=== PATIENT | female | born 1930 | race Caucasian/White ===

== ENCOUNTER → 2016-11-04 | Outpatient (REF) | payer MEDICARE ==
[~2016-11-04] MED LIST: ASPI81CH21 PO; BENI40TA5 PO; CALC600T7 PO; CARV12.5 PO; FISH1000 PO; GABA300C2 PO; HYDRPOW75 PO; LEVO50TA PO; OXYB5TAB80 PO; ZOLP-189 PO
[2016-11-04 18:25] LABS: MEAN CORPUSCULAR HEMOGLOBIN 30.8 pg (27.0-33.0); MEAN CORPUSCULAR HGB CONC 33.3 g/dl (32.0-36.5); MEAN CORPUSCULAR VOLUME 92.7 fl (80.0-96.0); RED CELL DISTRIBUTION WIDTH 13.4 % (11.5-14.5); WHITE BLOOD COUNT 5.3 K/mm3 (4.0-10.0)
[2016-11-04 18:42] LABS: CALCIUM LEVEL 9.4 MG/DL (8.8-10.2); CREATININE FOR GFR 1.2 MG/DL (0.55-1.02); GLOMERULAR FILTRATION RATE 45.6 (>32); POTASSIUM SERUM 3.8 MEQ/L (3.5-5.1)
== END ==
LOC: M LABSMT 11:03 → M LABDRAWC 11:13
PROVIDERS: ATTEND Urology
DX: Z85.51 Personal history of malignant neoplasm of bladder (principal)

== ENCOUNTER → 2017-01-04 | Outpatient (REF) | payer MEDICARE | LOC: M SMT 13:36 | PROVIDERS: ATTEND Urology | DX: Z85.51 Personal history of malignant neoplasm of bladder (principal) ==

== ENCOUNTER → 2017-03-25 | Outpatient (REF) | payer MEDICARE ==
[~2017-03-25] MED LIST changes: +CARV6.25 PO; +ELIQ2.5T PO; +INDA125TA PO; +LEVO50TA45 PO; +VALS1TAB47 PO
[2017-03-25 17:58] LABS: ALBUMIN 3.7 GM/DL (3.2-5.2); ALBUMIN/GLOBULIN RATIO 0.95 (1.00-1.93); BILIRUBIN,TOTAL 0.6 MG/DL (0.2-1.0); CALCIUM LEVEL 9.6 MG/DL (8.8-10.2); CREATININE FOR GFR 1.08 MG/DL (0.55-1.02); FREE T4 1.64 NG/DL (0.76-1.46); GLOMERULAR FILTRATION RATE 51.3 (>32); POTASSIUM SERUM 3.7 MEQ/L (3.5-5.1); TOTAL PROTEIN 7.6 GM/DL (6.4-8.2)
[2017-03-25 18:34] LABS: BASO % 0.5 % (0.0-1.0); EOS # 0.1 K/mm3 (0.0-0.50); EOS % 1.7 % (0.0-3.0); LARGE UNSTAINED CELL # 0.2 K/mm3 (0.0-0.4); LARGE UNSTAINED CELL % 2.4 % (0.0-4.0); LYMPH # 1.8 K/mm3 (1.5-4.5); LYMPH % 23.5 % (24.0-44.0); MEAN CORPUSCULAR HEMOGLOBIN 31.8 pg (27.0-33.0); MEAN CORPUSCULAR HGB CONC 34.5 g/dl (32.0-36.5); MEAN CORPUSCULAR VOLUME 92.1 fl (80.0-96.0); MONO # 0.6 K/mm3 (0.0-0.8); NEUTROPHILS # 4.4 K/mm3 (1.8-7.7); NEUTROPHILS % 63.8 % (36.0-66.0); PLATELET COUNT, AUTOMATED 326 k/mm3 (150-450); RED CELL DISTRIBUTION WIDTH 13.3 % (11.5-14.5); WHITE BLOOD COUNT 6.8 K/mm3 (4.0-10.0)
== END ==
LOC: M SFHCCLAY 11:33
PROVIDERS: ATTEND Family Medicine
DX: E03.9 Hypothyroidism, unspecified (principal); I10 Essential (primary) hypertension
CPT/HCPCS: 80053; 84439; 84443; 85025; 93005; G0463

== ENCOUNTER 2017-05-13 13:57 | Day surgery (SDC) | payer MEDICARE ==
[~2017-05-13] VITALS: Ht 154.9 cm; Wt 52.5 kg
[2017-05-13] MEDS ORDERED: LR 1,000 ML IV SCH ×2 (14:15→19:45)
[2017-05-13] MEDS ORDERED: VANCOMYCIN HCL 750 MG, VIAL MATE ADAPTER 1 EACH in D5W 250 ML IV ONE (14:15)
[2017-05-13] MEDS ORDERED: NS 250 ML IV SCH (14:15)
[2017-05-13] MEDS ORDERED: LIDOCAINE 1% SDV INJ 30 ML VIAL As Ordered ONE (15:11)
[2017-05-13] MEDS ORDERED: MUPIROCIN 2% OINT 22 GM TUBE As Ordered ONE (15:11)
[2017-05-13] MEDS ORDERED: ISOVUE-300 61% 50ML VIAL (Q9967) As Ordered ONE (15:12)
[2017-05-13] MEDS ORDERED: VANCOMYCIN 1000 MG/20 ML VIAL (J3370) As Ordered ONE (15:12)
[2017-05-13] MEDS ORDERED: MIDAZOLAM INJ 2 MG/2 ML VIAL (J2250) As Ordered ONE (16:38)
[2017-05-13] MEDS ORDERED: fentaNYL 100 MCG/2 ML INJECTION (J3010) As Ordered ONE (16:39)
[2017-05-13] MEDS: LABETALOL HCL 100 MG/20 ML VIAL IV SCH ×5 (19:35→19:55)
[2017-05-13] MEDS ORDERED: ONDANSETRON 4MG/2ML VIAL (J2405) IV PRN (19:45)
[2017-05-13] MEDS ORDERED: fentaNYL 100 MCG/2 ML INJECTION (J3010) IV PRN (19:45)
[2017-05-13] MEDS ORDERED: hydrALAZINE INJ 20 MG/ML VIAL As Ordered ONE (19:57)
[2017-05-13] MEDS: hydrALAZINE INJ 20 MG/ML VIAL IV SCH ×4 (20:00→20:25)
[2017-05-13] MEDS: CARVedilol 6.25 MG TAB PO SCH (20:00)
[2017-05-13] MEDS: VALSARTAN 80 MG TAB (DIOVAN) PO SCH (20:00)
--- NOTE | 2017-05-13 20:12 | REP ---
FLUOROSCOPIC GUIDANCE FOR PACEMAKER INSERTION: 05/13/2017. Clinical history: Sick sinus syndrome. Findings: A single image from C-arm fluoroscopy provided to Dr. Ledesma of the cardiology division shows pacer leads over the right atrium and right ventricular region. Fluoroscopy time 7 minutes 7 seconds. Signed by Beny Brunson MD 05/14/2017 11:12 A
--- NOTE | 2017-05-13 20:14 | REP ---
AP PORTABLE CHEST: 05/13/2017. Clinical history: Status post dual chamber pacer insertion. Sick sinus syndrome. Findings. Immediate postprocedure study with skin sai over a battery pacer unit in the left upper chest. The two leads are projecting over the right atrium and right ventricle. Lungs are somewhat hypoinflated. There appears to be some cardiomegaly with left atrial and ventricular enlargement. There is vascular congestion in the perihilar regions with crowded markings and some patchy atelectasis or alveolar edema. No gross effusion. No pneumothorax. Signed by Beny Brunson MD 05/14/2017 11:13 A
[2017-05-13 20:45] VITALS: BP 152/65
[2017-05-13 21:21] VITALS: BP 152/65
[2017-05-13] MEDS: INDAPAMIDE 1.25MG TABLET PO SCH (21:30)
[2017-05-13] MEDS ORDERED: SLF 3 ML SYR IV PRN (21:30)
[2017-05-13 22:00] VITALS: BP 139/63
[2017-05-13] MEDS: SLF 3 ML SYR IV SCH (22:00)
[2017-05-13 22:35] VITALS: BP 166/65
[2017-05-13] MEDS ORDERED: LABETALOL HCL 100 MG/20 ML VIAL As Ordered ONE (23:01)
[2017-05-13] MEDS: ACETAMINOPHEN TAB 650MG DOSE (2X325MG) PO PRN (23:08)
[2017-05-13 23:30] VITALS: BP 160/66
--- NOTE | 2017-05-13 23:49 | RO ---
DATE OF PROCEDURE: 05/13/2017 PREOPERATIVE DIAGNOSIS: Sick sinus syndrome. POSTOPERATIVE DIAGNOSIS: Sick sinus syndrome. PROCEDURE PERFORMED: Implantation of Medtronic dual-chamber pacemaker. SURGEON: Benito Ledesma MD AREA DEVELOPMENT MANAGER: None. ANESTHESIA: Lidocaine 1% local/monitored anesthetic care. FINDINGS: Sick sinus syndrome. No specimens. ESTIMATED BLOOD LOSS: Less than 10 mL. No blood products replaced. No drains. No complications. PROCEDURE DESCRIPTION: The patient was prepped and draped over the left pectoral region. 3M Ioban film was used. Lidocaine 1% was used for local anesthetic. Venograms were performed using a mixture of three parts contrast to one part saline and injected in three aliquots of 15 mL total volume each during localization of the left subclavian vein, extrathoracic portion, under fluoroscopic guidance in real time with the micropuncture needles. The first micropuncture guidewire was guidewire exchanged for the guidewire that came with the #7-Gambian sheath. Next, incision was made through the skin approximately 2-1/2 inches in length and approximately parallel to the left clavicle and 1 cm below the skin entry site using a PEAK PlasmaBlade. The PEAK PlasmaBlade was used to get through the fatty layer and the fibrous Cheryl's fascia. The pacemaker pocket was then formed in a caudal direction using blunt dissection using two fingers to separate the Cheryl's fascia from the prepectoral fascia. The guidewire was then pulled through the skin into the incision site. Next, a separate micropuncture entry at the level of the pectoral muscle was made more lateral to the first guidewire and entering into the extrathoracic portion of the subclavian vein using the first guidewire as well as the contrast mixture. It was guidewire exchanged for the other guidewire that came with the other #7-Gambian sheath. Next, a #7-Gambian sheath was placed over the more lateral of the guidewires and was used for vein access for the right ventricle lead. The right ventricle lead was placed into the right ventricle apex position where it was secured with a total of eight turns. This position was found to be electrically and anatomically satisfactory and without diaphragm stimulation at 10 volts high output pacing with palpation on either side of the diaphragm. The #7-Gambian sheath was then removed. The ventricular lead was then secured using #0 Ethibond suture material, suturing it to the pectoral muscle using two separate sutures to secure it to two of the notches on the supplied tie-down sleeve. Next, to stop some vein bleed back around the ventricular pacemaker lead at the level of the pectoral muscle, I used a #2-0 Vicryl suture and placed a Paul suture, which obtained hemostasis. Next, another #7-Gambian sheath was placed over the more medial of the guidewires and was used for vein access for the right atrial lead. The right atrial lead was secured in the right atrial appendage position with a total of 10 turns. This position was fund to be electrically and anatomically satisfactory, and no diaphragm stimulation could be palpated on either side with 10 volts high output pacing. The #7-Gambian sheath was removed, and the atrial lead was secured to the pectoral muscle using #0 Ethibond, using two sutures to secure it to the muscle around the supplied tie-down sleeve on two separate notches. Next, another #0 Ethibond suture was placed to the pectoral muscle to serve as the tie-down for the pacemaker pulse generator. The excess lead material was then coiled underneath the pacemaker pulse generator and placed along with the pacemaker pulse generator into the pacemaker pocket with the excess lead material below and pacemaker pulse generator on top. This was then secured to the pectoral muscle with the previously placed #0 Ethibond suture to secure the pulse generator to the muscle. The deep layer was then closed using individual sutures consisting of #2-0 Vicryl. Skin was closed using sai. Patient tolerated the procedure well without any immediate complications. The pacemaker pulse generator implanted was a LED Engin Advisa DR KHANNA, model A2DR01 with serial #[id number]. The right atrial lead implanted was a Medtronic, model 4076-45 cm with serial #[id number]. Testing in the operating room for the right atrial lead in bipolar configuration showed a capture threshold of 0.9 volts at 0.5 ms with lead impedance of 544 ohms and P wave amplitude of 1.4 mV with slew rate of 0.1 volts per second. The right ventricle lead implanted was a Medtronic, model 4076-52 cm with serial #[id number]. Final testing in the operating room for the right ventricle lead in bipolar configuration showed a capture threshold of 0.4 volts at 0.5 ms with lead impedance of 670 ohms and R wave amplitude of 8.6 mV and slew rate of 4.0 volts per second. Copy To: Dr. Miguel Winter
[2017-05-14] VITALS (10 sets, daily range): BP systolic 138–188; BP diastolic 60–96
[2017-05-14] MEDS: ACETAMINOPHEN TAB 650MG DOSE (2X325MG) PO PRN ×2 (04:12→20:43)
[2017-05-14] MEDS: LEVOTHYROXINE 50MCG TABLET (0.05MG) PO SCH (05:32)
[2017-05-14] MEDS: SLF 3 ML SYR IV SCH ×3 (05:32→20:44)
--- NOTE | 2017-05-14 09:02 | REP ---
PA and lateral chest: Comparison is 05/13/2017. There is a dual-chamber pacemaker entering from left with the pacing tips in satisfactory locations. There are skin sai adjacent to the pacemaker pack. There is no pneumothorax or hemothorax. Lung alberts are clear. Cardiac size is normal. The will, mediastinum, and bony thorax are. Impression: Pacemaker as described. Otherwise, essentially negative chest. Signed by Fernando Castro MD 05/14/2017 08:53 A
[2017-05-14] MEDS: INDAPAMIDE 1.25MG TABLET PO SCH (10:39)
[2017-05-14] MEDS: CARVedilol 6.25 MG TAB PO SCH ×2 (10:40→20:29)
--- NOTE | 2017-05-14 17:17 | IPN ---
DATE: 05/14/2017 CARDIOLOGY PROGRESS NOTE SUBJECTIVE: The patient has had very minimal pacemaker incisional discomfort. She has been up and walking short distances using her cane. Denies any other chest discomfort, shortness of breath or dizziness. Has been unaware of palpitations. Is eager to go home. OBJECTIVE: Pleasant, petite elderly lady lying comfortably with the head of the bed elevated at 30 degrees. Heart rate is 70 beats per minute (BPM) and regular. Blood pressure 150/75 with respiratory rate 18, oxygen saturation 96% on room air. Afebrile. Weight 118 pounds. Height 61 inches. Body mass index (BMI) 22.2. No pallor or icterus. Normal oral moisture. Trachea midline. Neck veins did not appear to be elevated. Her pacemaker incision appears to be healing well without drainage and only mild swelling but no erythema. There was good air entry over both lung alberts with no adventitious sounds. No pedal edema. TELEMETRY MONITORING: This shows appropriate atrial pacing with spontaneous AV conduction and narrow QRS complexes. Has been free of any tachyarrhythmia. PA AND LATERAL CHEST X-RAY: Study reviewed independently shows heart size mildly increased with CT ratio 14.5: 25.9. Her thoracic aorta is somewhat unfolded. Normal-appearing pulmonary vasculature. Slightly increased or accentuated interstitial markings. No localized infiltrate or pleural effusion. Dual-chamber pulse generator left subclavian region with bipolar pacing leads terminating in the high right atrial appendage and right ventricular floor. No pneumothorax. PACEMAKER INTERROGATION: Medtronic-Advisa MRI A2D showed soft interatrial electrograms measuring 1.0 mV. In light of this, her program sensitivity was decreased to 0.15 mV. Her ventricular intracardiac electrogram was excellent at 12.0 mV. Program sensitivity has been left at 0.9 mV. Pacing thresholds were excellent measuring 0.5 V/0.4 ms in both chambers, allowing us to decrease the maximum output of her adaptive pacing to 2.5 V/0.4 ms. She continues to have mode AAIR switching with DDDR, with low pacing rate 70 BPM, and upper tracking rate 120 BPM. Mode switching is activated at 171 BPM. Since device implant, she has been paced in the atrium 95.9% of the time and in the ventricle less than 0.1% of the time. She has had no episodes of atrial tachyarrhythmia at this point. PHYSICAL THERAPY: Home safety evaluation was performed today and the service felt that she would be best served by increasing her activities in hospital prior to possible discharge tomorrow. IMPRESSION/PLAN: 1. Paroxysmal atrial fibrillation: With her normal paced atrial rhythm and current carvedilol 6.25 mg twice a day, she has been free of recurrent atrial tachyarrhythmia. 2. Tachy-natan syndrome/dual-chamber pacemaker in situ: As mentioned, her incision appears to be healing well and her device is functioning appropriately. PA and left lateral chest x-ray confirms stable lead position and no pneumothorax. She will be seen in our office in approximately 7-10 days' time for wound check and staple removal. 3. Hypertensive heart disease (benign without heart failure): No signs or symptoms of congestion and her current blood pressure would be considered adequately controlled. Recent echocardiogram showed borderline concentric left ventricular hypertrophy with hyperkinetic wall motion. Her left atrium was mildly dilated with an impaired left ventricular diastolic function and mildly elevated estimated mean left atrial pressure. Right heart chambers were normal in size but she has a moderate degree of secondary pulmonary hypertension. 4. Aortic valve disorder (nonrheumatic): Her echocardiogram also recently showed some degenerative changes of both the mitral and aortic valvular apparatus with a moderate degree of aortic and only mild mitral insufficiency. We anticipate her discharge home tomorrow. Her medications will include: - carvedilol 6.25 mg twice a day - valsartan 325 mg daily - indapamide 1.25 mg daily - Synthroid 50 mcg daily She will resume a modest salt intake restriction and has been encouraged to perform regular low-level aerobic exercise. She has been cautioned to avoid getting her incision wet and perform only light activities of daily living with her left arm until her sai are removed. She and her daughter have been encouraged to contact us promptly for any abnormal swelling, redness or discharge. AURELIO
--- NOTE | 2017-05-14 19:17 | ECGEPIP ---
Stationary ECG Study [facility] Test Date: 2017-05-13 Pat Name: POLY NOE Department: Room: [place] [address] Gender: F [employer] Officer: : 1930 Requested By: Benito Ledesma Order Number: [id number] Reading MD: Eduard Byrd Measurements Intervals [place] Rate: 69 P: 196 RI: 273 QRS: 223 QRSD: 106 T: 163 QT: 390 QTc: 420 Interpretive Statements ELECTRONIC ATRIAL PACEMAKER POSSIBLE LEAD MISPLACEMENT BETWEEN LEADS I AND aVR POOR R WAVE PROGRESSION NO PRIOR TRACING IN THE SYSTEM Electronically Signed On 05-14-2017 19:16:50 EDT by Eduard Byrd
[2017-05-14] MEDS: VALSARTAN 80 MG TAB (DIOVAN) PO SCH (20:30)
[2017-05-15 04:50] VITALS: BP 130/66
[2017-05-15] MEDS: LEVOTHYROXINE 50MCG TABLET (0.05MG) PO SCH (05:49)
[2017-05-15] MEDS: SLF 3 ML SYR IV SCH (05:49)
[2017-05-15] MEDS: ACETAMINOPHEN TAB 650MG DOSE (2X325MG) PO PRN (05:51)
[2017-05-15 07:40] VITALS: BP 168/74
[2017-05-15] MEDS: INDAPAMIDE 1.25MG TABLET PO SCH (09:35)
[2017-05-15] MEDS: CARVedilol 6.25 MG TAB PO SCH (09:36)
== END 2017-05-15 11:31 | disposition home or self-care (01) ==
LOC: M SDC 13:57 → M PCU 20:32 → M ED INP 20:32 → M SDC 05-15 11:31
PROVIDERS: ATTEND Internal Medicine Cardiovascular Disease
DX: I49.5 Sick sinus syndrome (principal); I48.0 Paroxysmal atrial fibrillation; I11.9 Hypertensive heart disease without heart failure; I35.8 Other nonrheumatic aortic valve disorders; Z79.02 Long term (current) use of antithrombotics/antiplatelets; I10 Essential (primary) hypertension; E78.5 Hyperlipidemia, unspecified; Z79.899 Other long term (current) drug therapy; Z88.0 Allergy status to penicillin; Z88.2 Allergy status to sulfonamides
CPT/HCPCS: 33208; 71010; 71020; 76000; 93005; 97161; C1721; C1769; C1898; G8978; G8979; G8980; J2250; J3010; J3370; Q9967

== ENCOUNTER → 2017-07-05 | Outpatient (REF) | payer MEDICARE | LOC: M LAB REF 16:43 | PROVIDERS: ATTEND Urology | DX: Z85.51 Personal history of malignant neoplasm of bladder (principal) ==

== ENCOUNTER → 2018-05-09 | Outpatient (REF) | payer MEDICARE | LOC: M SMT 17:02 | DX: Z85.51 Personal history of malignant neoplasm of bladder (principal) | CPT/HCPCS: 88108 ==

== ENCOUNTER → 2018-12-14 | Outpatient (REF) | payer MEDICARE | LOC: M SMT 17:17 | PROVIDERS: ATTEND Urology | DX: Z85.51 Personal history of malignant neoplasm of bladder (principal) ==

== ENCOUNTER → 2018-12-21 | Outpatient (REF) | payer MEDICARE ==
[2018-12-21 18:02] LABS: HEMATOCRIT 38.1 % (36.0-47.0); HEMOGLOBIN 13.6 g/dl (12.0-15.5); MEAN CORPUSCULAR HEMOGLOBIN 34.6 pg (27.0-33.0); MEAN CORPUSCULAR HGB CONC 35.7 g/dl (32.0-36.5); MEAN CORPUSCULAR VOLUME 96.9 fl (80.0-96.0); PLATELET COUNT, AUTOMATED 314 10^3/uL (150-450); RED BLOOD COUNT 3.93 10^6/uL (4.00-5.40); WHITE BLOOD COUNT 6.4 10^3/uL (4.0-10.0)
[2018-12-21 18:07] LABS: ALBUMIN 3.7 GM/DL (3.2-5.2); BILIRUBIN,TOTAL 0.5 MG/DL (0.2-1.0); CALCIUM LEVEL 9.6 MG/DL (8.8-10.2); CREATININE FOR GFR 1.18 MG/DL (0.55-1.30); GLOMERULAR FILTRATION RATE 46.2 (>32); POTASSIUM SERUM 4.2 MEQ/L (3.5-5.1); TOTAL PROTEIN 7.4 GM/DL (6.4-8.2)
== END ==
LOC: M LABDRAWC 16:19
PROVIDERS: ATTEND Physician Assistant
DX: I10 Essential (primary) hypertension (principal)

== ENCOUNTER → 2019-12-21 | Outpatient (REF) | payer MEDICARE ==
[~2019-12-21] MED LIST changes: -VALS1TAB47 PO; +VALS1TAB67 PO
[2019-12-22 14:24] LABS: APPEARANCE, URINE CLEAR (CLEAR); BACTERIA, URINE AUTO NEGATIVE (NEGATIVE); BILIRUBIN, URINE AUTO NEGATIVE (NEGATIVE); BLOOD, URINE BLOOD NEGATIVE (NEGATIVE); COLOR, URINE YELLOW (YELLOW); GLUCOSE, URINE (UA) AUTO NEGATIVE (NEGATIVE); KETONE, URINE AUTO NEGATIVE (NEGATIVE); LEUKOCYTE ESTERASE, URINE AUTO NEGATIVE (NEGATIVE); NITRITE, URINE AUTO NEGATIVE (NEGATIVE); PROTEIN, URINE AUTO NEGATIVE (NEGATIVE); RBC, URINE AUTO 1 /HPF (0-3); SPECIFIC GRAVITY URINE AUTO 1.011 (1.002-1.035); SQUAMOUS EPITHELIAL CELL UR AU 3 /HPF (0-6); UROBILINOGEN, URINE AUTO 0.2 mg/dL (0.0-2.0); WBC, URINE AUTO 1 /HPF (0-3)
== END ==
LOC: M SFHCCLAY 16:18
PROVIDERS: ATTEND Family Medicine
DX: N39.0 Urinary tract infection, site not specified (principal)

== ENCOUNTER → 2020-05-22 | Outpatient (REF) | payer MEDICARE ==
[~2020-05-22] MED LIST changes: +CALC500C16 PO; +D-40TAB2 PO; +FLEC10TA PO; +FLEC50HA PO; +MELA1TAB9 PO; +MIRT1TAB16 PO; +RA T500C2 PO; +REME30TA PO; +vitamin D
[2020-05-22 20:27] LABS: FREE T4 1.38 NG/DL (0.76-1.46); THYROID STIMULATING HORMONE 2.41 uIU/ML (0.358-3.740); TOTAL 25(OH) VITAMIN D 80.3 NG/ML (30.0-100.0)
== END ==
LOC: M SFHCCLAY 16:07
PROVIDERS: ATTEND Family Medicine
DX: E03.8 Other specified hypothyroidism (principal)
CPT/HCPCS: 36415; 80048; 82306; 84439; 84443; G0463

== ENCOUNTER → 2020-05-22 | Outpatient (REF) | payer MEDICARE ==
[2020-05-22 20:27] LABS: CALCIUM LEVEL 10.3 MG/DL (8.8-10.2); CREATININE FOR GFR 1.25 MG/DL (0.55-1.30); GLOMERULAR FILTRATION RATE 43.1 (>32); POTASSIUM SERUM 3.7 MEQ/L (3.5-5.1)
== END ==
LOC: M SFHCCLAY 16:08
PROVIDERS: ATTEND Family Medicine
DX: I47.2 Ventricular tachycardia (principal)

== ENCOUNTER 2020-07-16 10:35 | Inpatient (IN) | payer MEDICARE ==
[2020-07-16] VITALS (17 sets, daily range): BP systolic 134–230; BP diastolic 65–98
[~2020-07-16] VITALS: Ht 152.4 cm; Wt 54.6 kg
[~2020-07-16 10:35] MED LIST changes: -CALC500C16 PO; -D-40TAB2 PO; -FLEC10TA PO; -FLEC50HA PO; -MELA1TAB9 PO; -MIRT1TAB16 PO; -RA T500C2 PO; -REME30TA PO; -vitamin D
[2020-07-16] MEDS ORDERED: MIRT1TAB16 PO (11:06)
[2020-07-16] MEDS ORDERED: CARV12.5 PO ×2 (11:06→15:44)
[2020-07-16] MEDS ORDERED: CALC500C16 PO (11:06)
[2020-07-16] MEDS ORDERED: vitamin D (11:06)
[2020-07-16] MEDS ORDERED: FLEC50HA PO (11:06)
[2020-07-16 11:51] LABS: BASO % 0.6 % (0.0-1.0); EOS # 0.1 10^3/uL (0.0-0.5); EOS % 1.6 % (0.0-3.0); HEMOGLOBIN 13.1 g/dl (12.0-15.5); LYMPH # 1.3 10^3/uL (1.5-5.0); LYMPH % 19.1 % (24.0-44.0); MEAN CORPUSCULAR HEMOGLOBIN 30.5 pg (27.0-33.0); MEAN CORPUSCULAR HGB CONC 32.8 g/dl (32.0-36.5); MONO # 0.6 10^3/uL (0.0-0.8); MONO % 8.4 % (0.0-5.0); NEUTROPHILS # 4.7 10^3/uL (1.5-8.5); PLATELET COUNT, AUTOMATED 331 10^3/uL (150-450); WHITE BLOOD COUNT 6.8 10^3/uL (4.0-10.0)
--- NOTE | 2020-07-16 11:59 | REPVR ---
PROCEDURE INFORMATION: Exam: CT Head Without Contrast Exam date and time: 07/16/2020 11:41 AM Age: 89 years old Clinical indication: Altered mental status/memory loss TECHNIQUE: Imaging protocol: Computed tomography of the head without contrast. Radiation optimization: All CT scans at this facility use at least one of these dose optimization techniques: automated exposure control; mA and/or kV adjustment per patient size (includes targeted exams where dose is matched to clinical indication); or iterative reconstruction. COMPARISON: No relevant prior studies available. FINDINGS: Brain: There is no acute intracranial hemorrhage, cerebral edema, or midline shift. Chronic microvascular ischemic changes are seen in the periventricular white matter. Age-related cerebral and cerebellar volume loss is present. Cerebral ventricles: Mild ex vacuo dilation of the lateral and third ventricles is noted. Bones/joints: No acute fracture. Paranasal sinuses: There is no acute sinusitis. Mastoid air cells: The mastoid air cells are clear. Orbital cavity: The included orbital structures are unremarkable. Vasculature: Atherosclerotic calcifications are seen involving the cavernous carotid arteries. Soft tissues: Unremarkable. IMPRESSION: 1. No acute intracranial abnormality. 2. Atrophy and chronic deep white matter ischemic changes. Electronically signed by: Maxwell White On 07/16/2020 11:58:46 AM
[2020-07-16 12:01] LABS: INR 1.1; PROTHROMBIN TIME 14.5 SECONDS (12.5-14.3)
--- NOTE | 2020-07-16 12:08 | REPVR ---
PROCEDURE INFORMATION: Exam: XR Chest, 1 View Exam date and time: 07/16/2020 12:01 PM Age: 89 years old Clinical indication: Other: Altered mental status TECHNIQUE: Imaging protocol: XR of the chest Views: 1 view. COMPARISON: CR Chest, 2 view PA, Lat 05/14/2017 8:05 AM FINDINGS: Tubes, catheters and devices: A dual lead pacemaker device is noted, with the battery pack projecting over the left chest. Lungs: Unremarkable. No consolidation. Pleural space: Unremarkable. No pleural effusion. No pneumothorax. Heart/Mediastinum: The cardiac silhouette is mildly enlarged, likely due to underlying cardiomegaly. Vasculature: Atherosclerotic calcifications are noted within the aortic arch. Bones/joints: Bone mineralization is decreased, suggestive of osteopenia. IMPRESSION: 1. No acute abnormality. 2. Chronic findings as discussed above. Electronically signed by: Maxwell White On 07/16/2020 12:08:02 PM
[2020-07-16 12:34] LABS: VENOUS BASE EXCESS -0.7 (-2.0-2.0); VENOUS HCO3 23.1 MEQ/L (23.0-27.0); VENOUS O2 SATURATION 98.9 % (60.0-80.0); VENOUS PARTIAL PRESSURE CO2 35.6 mmHg (38.0-50.0); VENOUS PARTIAL PRESSURE O2 131.3 mmHg (30.0-50.0); VENOUS TOTAL CO2 24.2 MEQ/L (24.0-28.0)
[2020-07-16 12:54] LABS: ALBUMIN 3.5 GM/DL (3.2-5.2); ALT/SGPT 25 U/L (12-78); BILIRUBIN,DIRECT < 0.1 MG/DL (0.0-0.2); BILIRUBIN,TOTAL 0.5 MG/DL (0.2-1.0); BLOOD UREA NITROGEN 20 MG/DL (7-18); CALCIUM LEVEL 9.9 MG/DL (8.8-10.2); CARBON DIOXIDE LEVEL 23 MEQ/L (21-32); CHLORIDE LEVEL 106 MEQ/L (98-107); CK-MB VALUE MASS 3.6 NG/ML (<3.6); CPK CREATINE PHOSPHOKINASE 110 U/L (26-192); CREATININE FOR GFR 0.92 MG/DL (0.55-1.30); GLOMERULAR FILTRATION RATE > 60.0 (>32); GLUCOSE, FASTING 106 MG/DL (70-100); MB/CK RELATIVE INDEX 3.27 (< OR =4); POTASSIUM SERUM 4.6 MEQ/L (3.5-5.1); SODIUM LEVEL 136 MEQ/L (136-145); TOTAL PROTEIN 7.3 GM/DL (6.4-8.2); TROPONIN I < 0.02 NG/ML (< 0.10)
[2020-07-16] MEDS ORDERED: LABETALOL 100MG/20ML VIAL IV ONE (13:15)
[2020-07-16 13:32] LABS: OSMOLALITY SERUM 283 MOSM/KG (280-301)
[2020-07-16] MEDS ORDERED: LABETALOL HCL 200 MG in D5W 160 ML IV SCH ×2 (13:50→18:00)
[2020-07-16] MEDS ORDERED: D-40TAB2 PO (15:44)
[2020-07-16] MEDS ORDERED: MELA1TAB9 PO (15:44)
[2020-07-16] MEDS ORDERED: FLEC10TA PO (15:44)
[2020-07-16] MEDS ORDERED: REME30TA PO (15:44)
[2020-07-16] MEDS ORDERED: RA T500C2 PO (15:45)
[2020-07-16] MEDS ORDERED: hydrALAZINE 20MG/ML 1ML VIAL (J0360 PER 20MG) IV PRN (16:00)
--- NOTE | 2020-07-16 16:56 | HPEPDOC ---
[facility] Medical History & Physical Date of Admission Jul 16, 2020 Date of Service: Jul 16, 2020 Primary Care Physician: SERA QUIJANO DO Attending Physician: DALJIT MCCABE MD History and Physical HPI: Mrs. Davalos is an 89yo female with a PMH of HTN and A-fib(on Eliquis, s/p pacemaker) who was brought to the ED by her daughters who were concerned about her confusion and speech changes on Wednesday (07/14). The patients oldest daughter reported that on Wednesday night the patient was speaking gibberish where they would ask her questions and her responses did not make any sense and that the patient also seemed confused at times. For example, the patient told her caregiver that someone had stolen her car and that the police needed to be called. The daughter stated that the patient has had episodes of speaking gibberish, but that it usually only lasts for a couple words. The daughter present on exam was also concerned about the patient trying to get up out of bed out of confusion. The patient has 24 hour care at home and her daughter manages all her medication--she has not missed any doses recently. PMH: 1. HTN 2. Hypothyroidism 3. Overactive Bladder 4. Insomnia 5. Bladder cancer/tumor 6. A-fib (on Eliquis, s/p pacemaker) PSH: 1. Tonsillectomy 1936 2. Hip replacement, left 1992 3. Revision hip replacement, left 2005 4. TURBT 06/07/2013 5. Cystoscopy 01/2016 & 12/2018 6. Fractured femur 09/2019 MEDICATIONS: please see below. SH: No smoking, IVDU, or ETOH use Has 24-hour home care FH: noncontributory ALLERGIES: please see below. REVIEW OF SYSTEMS: Constitutional: No Weight Change, No Fever, No Chills, No Night Sweats, No Fatigue, No Malaise ENT/Mouth: No Hearing Changes, No Ear Pain, No Nasal Congestion, No Sinus Pain, No Hoarseness, No sore throat, No Rhinorrhea, No Swallowing Difficulty Eyes: No Eye Pain, No Swelling, No Redness, No Foreign Body, No Discharge, No Vision Changes Cardiovascular: No Chest Pain, No SOB, No PND, No Dyspnea on Exertion, No Orthopnea, No Claudication, No Edema, No Palpitations Respiratory: No Cough, No Wheezing, No Smoke Exposure, No Dyspnea Gastrointestinal: No Nausea, No Vomiting, No Diarrhea, No Constipation, No Pain, No Heartburn, No Anorexia, No Dysphagia, No Hematochezia, No Melena Genitourinary: No Dysmenorrhea, No DUB, No Dyspareunia, No Dysuria Musculoskeletal: No Arthralgias, No Myalgias, No Joint Swelling, No Joint Stiffness, No Back Pain, No Neck Pain, No Injury History Skin: No Skin Lesions, No Pruritis Neuro: No Weakness, No Numbness, No Paresthesias, No Loss of Consciousness, No Syncope, No Dizziness, No Headache, No Coordination Changes, No Recent Falls Psych: No Anxiety/Panic, No Depression, No Insomnia, No Personality Changes, No Delusions Heme/Lymph: No Bruising, No Bleeding, No Transfusions History, No Lymphadenopathy Endocrine: No Polyuria, No Polydipsia, No Temperature Intolerance PHYSICAL EXAM: VITAL SIGNS: please see below. GENERAL: Pt lying comfortably in hospital bed, appears stated age, in NAD. HEENT: NC, AT, no scleral icterus, no pharyngeal erythema. NECK: no JVD or lymphadenopathy appreciated. CV: regular rate, paced rhythm without murmurs, rubs, or gallops. RESPIRATORY: CTAB without wheezes, rales, or rhonchi. ABDOMEN: soft, non-tender, non-distended, bowel sounds present in all 4 quadrants. EXTREMITIES: 4/5 strength L leg, 5/5 strength in UE and R leg, sensation intact in all 4 extremities, pedal pulses +2 and equal B/L. NEURO: CN II-XII grossly intact, EOMI, PERRLA PSYCH: Awake, oriented only to person, normal mood and affect LABORATORY and MICROBIOLOGY: please see below: IMAGING: HEAD CT: FINDINGS: Brain: There is no acute intracranial hemorrhage, cerebral edema, or midline shift. Chronic microvascular ischemic changes are seen in the periventricular white matter. Age-related cerebral and cerebellar volume loss is present. Cerebral ventricles: Mild ex vacuo dilation of the lateral and third ventricles is noted. Bones/joints: No acute fracture. Paranasal sinuses: There is no acute sinusitis. Mastoid air cells: The mastoid air cells are clear. Orbital cavity: The included orbital structures are unremarkable. Vasculature: Atherosclerotic calcifications are seen involving the cavernous carotid arteries. Soft tissues: Unremarkable. IMPRESSION: 1. No acute intracranial abnormality. 2. Atrophy and chronic deep white matter ischemic changes. CXR: FINDINGS: Tubes, catheters and devices: A dual lead pacemaker device is noted, with the battery pack projecting over the left chest. Lungs: Unremarkable. No consolidation. Pleural space: Unremarkable. No pleural effusion. No pneumothorax. Heart/Mediastinum: The cardiac silhouette is mildly enlarged, likely due to underlying cardiomegaly. Vasculature: Atherosclerotic calcifications are noted within the aortic arch. Bones/joints: Bone mineralization is decreased, suggestive of osteopenia. IMPRESSION: 1. No acute abnormality. 2. Chronic findings as discussed above. ASSESSMENT/PLAN: Mrs. Davalos is an 89yo female with a PMH of HTN and A-fib (on Eliquis, s/p pacemaker) who was brought to the ED by her daughters who were concerned about her confusion and speech changes, was found to have BP 230/100 concerning for hypertensive encephalopathy. # Confusion 2/2 likely Hypertensive Encephalopathy: BP 230/100 and evidence of [id number] - s/p one dose Labetalol 10mg IV in the ED - Renal Doppler US ordered to r/o Renal artery stenosis - CXR & Head CT showed no acute abnormalities - Admit to ICU on Labetalol drip 5cc/hr with titration for sBP 140-180 in first 6 hours - Hydralazine 10mg IV Q6h PRN HTN sBP >180 - Continue home Coreg 12.5mg BID - 2g Na diet restriction daily - Daily weights, strict I&O - Remote telemetry for next 48 hours - Sitter ordered and fall precautions due to extensive fall history # History of AF on Eliquis, s/p pacemaker - Rate controlled at this point in time, EKG paced sinus rhythm # HTN - Continue home Carvedilol 12.5mg PO BID # Hypothyroidism - Continue home Synthroid 50mcg PO QD DVT Prophylaxis: on Eliquis Vital Signs Vital Signs Date Time Temp Pulse Resp B/P (MAP) Pulse Ox O2 Delivery O2 Flow Rate FiO2 07/16/20 14:15 76 230/100 07/16/20 10:37 98.6 16 98 Room Air Laboratory Data Labs 24H Laboratory Tests 2 07/16/20 11:28: Prothrombin Time 14.5H, Prothromb Time International Ratio 1.10, Activated Partial Thromboplast Time 36.0, Anion Gap 7L, Glomerular Filtration Rate > 60.0, Osmolality 283, Calcium Level 9.9, Total Bilirubin 0.5, Direct Bilirubin < 0.1, Aspartate Amino Transf (AST/SGOT) 36, Alanine Aminotransferase (ALT/SGPT) 25, Alkaline Phosphatase 91, Total Creatine Kinase 110, Creatine Kinase MB 3.6, Creatine Kinase MB Relative Index 3.27, Troponin I < 0.02, Total Protein 7.3, Albumin 3.5, Albumin/Globulin Ratio 0.9L, Thyroid Stimulating Hormone (TSH) 2.7 40 07/16/20 11:32: Immature Granulocyte % (Auto) 0.3, Neutrophils (%) (Auto) 70.0H, Lymphocytes (%) (Auto) 19.1L, Monocytes (%) (Auto) 8.4H, Eosinophils (%) (Auto) 1.6, Basophils (%) (Auto) 0.6, Neutrophils # (Auto) 4.7, Lymphocytes # (Auto) 1.3L, Monocytes # (Auto) 0.6, Eosinophils # (Auto) 0.1, Basophils # (Auto) 0.0, Nucleated Red Blood Cells % (auto) 0.0 07/16/20 11:38: Urine Color STRAW, Urine Appearance CLEAR, Urine pH 7.0, Urine Specific [place] 1.010, Urine Protein 2+H, Urine Glucose (UA) NEGATIVE, Urine Ketones NEGATIVE, Urine Blood NEGATIVE, Urine Nitrite NEGATIVE, Urine Bilirubin NEGATIVE, Urine Urobilinogen 0.2, Urine Leukocyte Esterase NEGATIVE, Urine WBC (Auto) 2, Urine RBC (Auto) 2, Urine Hyaline Casts (Auto) 0, Urine Bacteria (Auto) NEGATIVE, Urine Squamous Epithelial Cells 0, Urine Sperm (Auto) 07/16/20 12:16: Blood Gas Bicarbonate Standard 24.0, Venous Blood pH 7.430, Venous Blood Partial Pressure CO2 35.6L, Venous Blood Partial Pressure O2 131.3H, Venous Blood Total Carbon Dioxide 24.2, Venous Blood HCO3 23.1, Venous Blood Oxygen Saturation 98.9H, Venous Blood Base Excess -0.7 07/16/20 12:17: Bedside Glucose (Misc Panel) 104 CBC/BMP Laboratory Tests 07/16/20 11:28 07/16/20 11:32 Microbiology Microbiology 07/16/20 Blood Culture, Received Pending 07/16/20 Blood Culture, Received Pending Home Medications Scheduled Apixaban (Eliquis) 2.5 Mg Tab, 2.5 MG PO BID Calcium Carbonate (Calcium) 500 Mg Tab.chew, 500 MG PO DAILY Carvedilol (Carvedilol) 12.5 Mg Tablet, 12.5 MG PO BID Cholecalciferol (Vitamin D3) (Vitamin D-400) 10 Mcg Tablet, 10 MCG PO DAILY Flecainide Acetate (Flecainide Acetate) 100 Mg Tablet, 50 MG PO BID Levothyroxine Sodium (Levoxyl) 50 Mcg Tab, 50 MCG PO QAM Melatonin (Melatonin) 5 Mg Tablet, 5 MG PO QHS Mirtazapine (Remeron) 30 Mg Tablet, 30 MG PO QHS Turmeric Root Extract (Turmeric) 500 Mg Capsule, 500 MG PO DAILY Daughter states started turmeric 07/16/20 for joint pain Allergies Coded Allergies: Penicillins (Verified Allergy, Intermediate, hives, 07/16/20) Sulfa (Sulfonamide Antibiotics) (Verified Allergy, Intermediate, throat and tongue swelling, 07/16/20) ciprofloxacin (Verified Adverse Reaction, Unknown, lethergy, 07/16/20) A-FIB/CHADSVASC A-FIB History Current/History of A-Fib/PAF?: Yes Current PO Anticoag Therapy: Yes Age/Risk Factor Scoring CHADSVASC: CHADSVASC Response (Comments) Value Age Risk Factor Age >/= 75 years old 2 Gender Risk Factor Female 1 Hx of CHF No 0 Hx of HTN Yes 1 Hx of Stroke/TIA/or VTE No 0 Hx of Diabetes No 0 Hx of Vascular Disease No 0 Total 4 Treatment Treatment ordered: Apixaban GME ATTESTATION GME ATTESTATION My faculty preceptor for this patient encounter was physically present during the encounter and was fully available. All aspects of the patient interview, examination, medical decision making process, and medical care plan development were reviewed and approved by the faculty preceptor. The faculty preceptor is aware and concurs with the plan as stated in the body of this note and will attest to such by his/her cosignature. ATTENDING NOTE Patient was seen and examined by me personally with the residents and the students. Agree with the above assessment and plan. MELANY MORSE MD Jul 16, 2020 16:56 DALJIT MCCABE MD Jul 19, 2020 14:07
[2020-07-16] MEDS: CARVedilol 12.5 MG TAB PO SCH (17:45)
--- NOTE | 2020-07-16 20:49 | ECGEPIP ---
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
[2020-07-16] MEDS: APIXABAN 2.5 MG TAB (ELIQUIS) PO SCH (20:54)
[2020-07-16] MEDS: MIRTAZAPINE 15 MG TAB PO SCH (20:54)
[2020-07-16] MEDS ORDERED: RAMELTEON 8 MG TAB (ROZEREM) PO SCH (21:00)
[2020-07-16] MEDS: ACETAMINOPHEN TAB 650MG DOSE (2X325MG) PO PRN (22:01)
[2020-07-17] VITALS (18 sets, daily range): BP systolic 105–196; BP diastolic 55–83
[2020-07-17 01:00] LABS: BLOOD UREA NITROGEN 18 MG/DL (7-18); CALCIUM LEVEL 10.1 MG/DL (8.8-10.2); CARBON DIOXIDE LEVEL 25 MEQ/L (21-32); CHLORIDE LEVEL 103 MEQ/L (98-107); CREATININE FOR GFR 0.98 MG/DL (0.55-1.30); GLUCOSE, FASTING 124 MG/DL (70-100); MAGNESIUM LEVEL 1.9 MG/DL (1.8-2.4); POTASSIUM SERUM 3.5 MEQ/L (3.5-5.1); SODIUM LEVEL 136 MEQ/L (136-145); TROPONIN I < 0.02 NG/ML (< 0.10)
[2020-07-17 04:59] LABS: HEMATOCRIT 38.9 % (36.0-47.0); HEMOGLOBIN 12.8 g/dl (12.0-15.5); MEAN CORPUSCULAR HEMOGLOBIN 29.9 pg (27.0-33.0); MEAN CORPUSCULAR HGB CONC 32.9 g/dl (32.0-36.5); MEAN CORPUSCULAR VOLUME 90.9 fl (80.0-96.0); PLATELET COUNT, AUTOMATED 328 10^3/uL (150-450); RED BLOOD COUNT 4.28 10^6/uL (4.00-5.40); WHITE BLOOD COUNT 6.8 10^3/uL (4.0-10.0)
[2020-07-17 05:20] LABS: CALCIUM LEVEL 9.7 MG/DL (8.8-10.2); CREATININE FOR GFR 1.12 MG/DL (0.55-1.30); GLOMERULAR FILTRATION RATE 48.9 (>32); MAGNESIUM LEVEL 1.8 MG/DL (1.8-2.4); POTASSIUM SERUM 3.8 MEQ/L (3.5-5.1)
[2020-07-17] MEDS: FLECAINIDE 50MG TABLET PO SCH ×2 (09:00→20:39)
--- NOTE | 2020-07-17 09:58 | ECGEPIP ---
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
[2020-07-17] MEDS: LEVOTHYROXINE 50MCG TABLET (0.05MG) PO SCH (10:04)
[2020-07-17] MEDS: CARVedilol 12.5 MG TAB PO SCH ×2 (10:04→20:41)
[2020-07-17] MEDS: APIXABAN 2.5 MG TAB (ELIQUIS) PO SCH ×2 (10:04→20:40)
--- NOTE | 2020-07-17 10:43 | REPVR ---
PROCEDURE INFORMATION: Exam: US Duplex Artery and Vein of the Abdominal and/or Reproductive Organs, Complete Kidneys Exam date and time: 07/17/2020 8:26 AM Age: 89 years old Clinical indication: Abnormal findings; Abnormal lab test; Other: Hypertension; Additional info: Hypertensive emergency TECHNIQUE: Imaging protocol: Real-time duplex ultrasound scan of the arterial and venous flow with color Doppler flow and spectral waveform analysis with image documentation. Complete duplex exam focused on the kidneys. Duplex images required to evaluate vascular conditions. COMPARISON: No relevant prior studies available. FINDINGS: There is absent flow in the right kidney. CT angiogram or MR angiogram of the abdomen may be considered for further evaluation. Peak systolic velocities within the LEFT renal artery measure up to 58.3 cm/s. The renal artery/aortic systolic velocity ratio is 0.5. The RIGHT kidney measures 9.2 cm in length. There are a couple of solid hypoechoic masses measuring 1.4 and 1.7 cm in the midpole of the right kidney, concerning for malignancy. MRI of the abdomen may be considered for further evaluation. 2.2 cm simple cortical cyst is seen in the upper pole of the right kidney. The LEFT kidney measuring 8.9 cm in length. Simple cortical cysts are noted measuring 2.4 cm in the upper pole, 10 and 7 mm in the midpole of the left kidney. No calculus or hydronephrosis is seen on either side. The peak systolic velocity in the aorta is 99.4 cm/s. IMPRESSION: 1. There is absent flow in the right kidney. CT angiogram or MR angiogram of the abdomen may be considered for further evaluation. 2. No evidence of hemodynamically significant stenosis of the left renal artery. 3. Abnormal values : RA/A ratio greater than 3.5.PSV GREATER than 200 cm/s.= 60% stenosis.RI > 0.8 and AT > 0.07 4. There are a couple of solid hypoechoic masses measuring 1.4 and 1.7 cm in the midpole of the right kidney, concerning for malignancy. MRI of the abdomen may be considered for further evaluation. 2.2 cm simple cortical cyst is seen in the upper pole of the right kidney. 5. No calculus or hydronephrosis is seen on either side. Electronically signed by: Ton West On 07/17/2020 10:43:48 AM
[2020-07-17] MEDS ORDERED: ISOVUE-370 76% 100ML VIAL As Ordered ONE (11:36)
--- NOTE | 2020-07-17 12:34 | REPVR ---
PROCEDURE INFORMATION: Exam: CT Abdomen And Pelvis Without And With Contrast; Kidneys Exam date and time: 07/17/2020 11:56 AM Age: 89 years old Clinical indication: Other: Absent flow; Additional info: Several masses in R kidney and absent flow TECHNIQUE: Imaging protocol: Computed tomography of the abdomen and pelvis without and with intravenous contrast. Exam focused on the kidneys. Radiation optimization: All CT scans at this facility use at least one of these dose optimization techniques: automated exposure control; mA and/or kV adjustment per patient size (includes targeted exams where dose is matched to clinical indication); or iterative reconstruction. Contrast material: ISOVUE 370; Contrast volume: 100 ml; Contrast route: INTRAVENOUS (IV); COMPARISON: No relevant prior studies available. FINDINGS: Lungs: Interstitial prominence and bilateral airspace disease. Cardiomegaly and pacemaker. Liver: No focal hepatic mass. Gallbladder and bile ducts: Borderline gallbladder wall thickening. No cholelithiasis or biliary ductal dilatation. Pancreas: Borderline pancreatic ductal dilatation without focal mass. Spleen: No splenomegaly. Adrenals: Unremarkable adrenals. Kidneys and ureters: Multiple bilateral renal nodular hypodense lesions which do not fulfill CT criteria for simple cysts, including a 1.4 cm lesion in the inferolateral right kidney and 8 mm lesion in the posterior-inferior left kidney. No hydronephrosis. Stomach and bowel: No significant small bowel dilatation. Prominent stool and scattered diverticula. Appendix: Nonvisualization of the appendix. Intraperitoneal space: No significant free fluid. Lymph nodes: Subcentimeter lymph nodes. Vasculature: Extensive vascular calcification. Atherosclerotic plaque. Normal caliber of the abdominal aorta. Bladder: Unremarkable bladder. Reproductive: Inhomogeneous attenuation and calcifications in the uterus. Bones/joints: Beam hardening artifact in association with left hip arthroplasty. Surgical hardware in the proximal right femur. Osteopenia, degenerative change, vacuum discs, and disc bulging. Soft tissues: Unremarkable. IMPRESSION: 1. Multiple bilateral renal nodular hypodense lesions which do not fulfill CT criteria for simple cysts, including a 1.4 cm lesion in the inferolateral right kidney and 8 mm lesion in the posterior-inferior left kidney. 2.Additional findings as described above. Electronically signed by: Johnnie Sexton On 07/17/2020 12:34:35 PM
[2020-07-17] MEDS ORDERED: SLF 3 ML SYR IV PRN (13:45)
[2020-07-17] MEDS: SLF 3 ML SYR IV SCH ×2 (14:00→20:41)
--- NOTE | 2020-07-17 18:38 | IPNPDOC ---
Date Seen The patient was seen on 07/17/20. Progress Note SUBJECTIVE: Nursing reported that the patient stood up and felt nauseous once last night, but with no vomiting. Pts daughter reported that she has been speaking clearly and did not have any episodes of gibberish or confusion. Pt denied any chest pain, lightheadedness, dizziness, nausea, vomiting, or diarrhea. Patient worked with PT today and determined unsafe for discharge at this time. OBJECTIVE: VITAL SIGNS: please see below. GENERAL: Pt lying comfortably in hospital bed, appears stated age, in NAD. HEENT: NC, AT, no scleral icterus, no pharyngeal erythema. NECK: no JVD or lymphadenopathy appreciated. CV: regular rate, paced rhythm without murmurs, rubs, or gallops. RESPIRATORY: CTAB without wheezes, rales, or rhonchi. ABDOMEN: soft, non-tender, non-distended, bowel sounds present in all 4 quadrants. EXTREMITIES: 4/5 strength L leg, 5/5 strength in UE and R leg, sensation intact in all 4 extremities, pedal pulses +2 and equal B/L. NEURO: CN II-XII grossly intact, EOMI, PERRLA, A&Ox3 PSYCH: normal mood and affect LABORATORY and MICROBIOLOGY: please see below: IMAGING: RENAL DOPPLER US: FINDINGS: There is absent flow in the right kidney. CT angiogram or MR angiogram of the abdomen may be considered for further evaluation. Peak systolic velocities within the LEFT renal artery measure up to 58.3 cm/s. The renal artery/aortic systolic velocity ratio is 0.5. The RIGHT kidney measures 9.2 cm in length. There are a couple of solid hypoechoic masses measuring 1.4 and 1.7 cm in the midpole of the right kidney, concerning for malignancy. MRI of the abdomen may be considered for further evaluation. 2.2 cm simple cortical cyst is seen in the upper pole of the right kidney. The LEFT kidney measuring 8.9 cm in length. Simple cortical cysts are noted measuring 2.4 cm in the upper pole, 10 and 7 mm in the midpole of the left kidney. No calculus or hydronephrosis is seen on either side. The peak systolic velocity in the aorta is 99.4 cm/s. IMPRESSION: 1. There is absent flow in the right kidney. CT angiogram or MR angiogram of the abdomen may be considered for further evaluation. 2. No evidence of hemodynamically significant stenosis of the left renal artery. 3. Abnormal values : RA/A ratio greater than 3.5.PSV GREATER than 200 cm/s.= 60% stenosis.RI > 0.8 and AT > 0.07 4. There are a couple of solid hypoechoic masses measuring 1.4 and 1.7 cm in the midpole of the right kidney, concerning for malignancy. MRI of the abdomen may be considered for further evaluation. 2.2 cm simple cortical cyst is seen in the upper pole of the right kidney. 5. No calculus or hydronephrosis is seen on either side. CT ABD/PELVIS WITHOUT AND WITH IV CONTRAST: FINDINGS: Lungs: Interstitial prominence and bilateral airspace disease. Cardiomegaly and pacemaker. Liver: No focal hepatic mass. Gallbladder and bile ducts: Borderline gallbladder wall thickening. No cholelithiasis or biliary ductal dilatation. Pancreas: Borderline pancreatic ductal dilatation without focal mass. Spleen: No splenomegaly. Adrenals: Unremarkable adrenals. Kidneys and ureters: Multiple bilateral renal nodular hypodense lesions which do not fulfill CT criteria for simple cysts, including a 1.4 cm lesion in the inferolateral right kidney and 8 mm lesion in the posterior-inferior left kidney. No hydronephrosis. Stomach and bowel: No significant small bowel dilatation. Prominent stool and scattered diverticula. Appendix: Nonvisualization of the appendix. Intraperitoneal space: No significant free fluid. Lymph nodes: Subcentimeter lymph nodes. Vasculature: Extensive vascular calcification. Atherosclerotic plaque. Normal caliber of the abdominal aorta. Bladder: Unremarkable bladder. Reproductive: Inhomogeneous attenuation and calcifications in the uterus. Bones/joints: Beam hardening artifact in association with left hip arthroplasty. Surgical hardware in the proximal right femur. Osteopenia, degenerative change, vacuum discs, and disc bulging. Soft tissues: Unremarkable. IMPRESSION: 1. Multiple bilateral renal nodular hypodense lesions which do not fulfill CT criteria for simple cysts, including a 1.4 cm lesion in the inferolateral right kidney and 8 mm lesion in the posterior-inferior left kidney. 2.Additional findings as described above. ASSESSMENT/PLAN: Mrs. Davalos is an 89yo female with a PMH of HTN and A-fib (on Eliquis, s/p pacemaker) who was brought to the ED by family for confusion and speech changes, was found to have BP 230/100 concerning for hypertensive encephalopathy. # Confusion 2/2 likely Hypertensive Encephalopathy: - S/p labetalol drip overnight + IV hydralazine. BP better controlled this AM with systolic in 140s - Mental status improved this AM with BP control. Patient likely has baseline dementia, per family. - CXR & Head CT showed no acute abnormalities - 2g Na diet restriction daily - Daily weights, strict I&O - Remote telemetry - Sitter ordered and fall precautions due to extensive fall history # Hypoechoic masses in R kidney: - Pending renin/aldosterone/acth/angiotensin levels to rule out pathology similar to pheochromocytoma - US findings discussed with Dr. Herrera (Urology), who reviewed CT abd/pelvis and noted that there is blood flow to both kidneys and lesions most likely complex renal cysts. Recommendations are to follow up with him in the outpatient setting. # History of A-fib on Eliquis, s/p pacemaker - Rate controlled at this point in time, EKG paced sinus rhythm # HTN - Continue home Carvedilol 12.5mg PO BID # Hypothyroidism - Continue home Synthroid 50mcg PO QD DVT Prophylaxis: on Eliquis Shaquille Brown PAS-II VS, I&O, 24H, [place] Vital Signs/I&O Vital Signs Date Time Temp Pulse Resp B/P (MAP) Pulse Ox O2 Delivery O2 Flow Rate FiO2 07/17/20 17:33 164/72 (102) 07/17/20 16:00 98.2 79 17 96 Room Air I&O- Last 24 Hours up to 6 AM 07/17/20 06:00 Intake Total 478 ml Output Total 1090 ml Balance -612 ml Laboratory Data 24H LABS Laboratory Tests 2 07/17/20 00:17: Anion Gap 8, Glomerular Filtration Rate 57.0, Calcium Level 10.1, Magnesium Level 1.9, Troponin I < 0.02 07/17/20 04:43: Anion Gap 7L, Glomerular Filtration Rate 48.9, Calcium Level 9.7, Magnesium Level 1.8, Nucleated Red Blood Cells % (auto) 0.0 07/17/20 12:30: CBC/BMP Laboratory Tests 07/17/20 00:17 07/17/20 04:43 Microbiology Microbiology 07/16/20 Blood Culture - Preliminary, Resulted No growth after 24 hours . All specim... 07/16/20 Blood Culture - Preliminary, Resulted No growth after 24 hours . All specim... GME ATTESTATION GME ATTESTATION My faculty preceptor for this patient encounter was physically present during the encounter and was fully available. All aspects of the patient interview, examination, medical decision making process, and medical care plan development were reviewed and approved by the faculty preceptor. The faculty preceptor is aware and concurs with the plan as stated in the body of this note and will attest to such by his/her cosignature. ATTENDING NOTE Patient was seen and examined by me personally with the residents and the students. Agree with the above assessment and plan. MELANY MORSE MD Jul 17, 2020 18:38 DALJIT MCCABE MD Jul 19, 2020 14:08
[2020-07-17] MEDS: MIRTAZAPINE 15 MG TAB PO SCH (20:39)
[2020-07-18] VITALS: BP 116/60
[2020-07-18 04:00] VITALS: BP 168/84
[2020-07-18] MEDS: LEVOTHYROXINE 50MCG TABLET (0.05MG) PO SCH (06:00)
[2020-07-18] MEDS: SLF 3 ML SYR IV SCH (06:41)
[2020-07-18 08:00] VITALS: BP 131/64
[2020-07-18] MEDS ORDERED: FLUBLOK(EGG FREE)(QUAD)INFLUENZA VACC 0.5ML SYRINGE 18YRS & OLDER IM SCH (09:00)
[2020-07-18] MEDS: ACETAMINOPHEN TAB 650MG DOSE (2X325MG) PO PRN (09:29)
[2020-07-18 09:30] VITALS: BP 131/64
[2020-07-18] MEDS: APIXABAN 2.5 MG TAB (ELIQUIS) PO SCH (09:30)
[2020-07-18] MEDS: CARVedilol 12.5 MG TAB PO SCH (09:30)
[2020-07-18] MEDS: FLECAINIDE 50MG TABLET PO SCH (10:39)
[2020-07-18 11:35] VITALS: BP 104/50
[2020-07-18] MEDS ORDERED: CARV12.5 PO (11:43)
[2020-07-18] MEDS ORDERED: PNEUMOCOCCAL VACCINE 0.5ML SYRINGE (PNEUMOVAX 23) IM ONE (11:45)
--- NOTE | 2020-07-19 18:35 | DS.PDOC ---
Discharge Summary General Date of Admission Jul 16, 2020 at 15:55 Date of Discharge July 19, 2020 Primary Care Physician: SERA QUIJANO DO Attending Physician: DALJIT MCCABE MD Discharge Summary PROCEDURES PERFORMED DURING STAY: [None]. ADMITTING DIAGNOSES: 1. Hypertensive emergency with end-organ damage DISCHARGE DIAGNOSES: 1. Hypertensive emergency with end-organ damage 2. Complex renal cysts COMPLICATIONS/CHIEF COMPLAINT: Encephalopathy, Hypertensive. HISTORY OF PRESENT ILLNESS: Mrs. Davalos is an 89yo female with a PMH of HTN and A-fib(on Eliquis, s/p pacemaker) who was brought to the ED by her daughters who were concerned about her confusion and speech changes on Wednesday (07/14). The patients oldest daughter reported that on Wednesday night the patient was speaking gibberish where they would ask her questions and her responses did not make any sense and that the patient also seemed confused at times. For example, the patient told her caregiver that someone had stolen her car and that the police needed to be called. The daughter stated that the patient has had episodes of speaking gibberish, but that it usually only lasts for a couple words. The daughter present on exam was also concerned about the patient trying to get up out of bed out of confusion. The patient has 24 hour care at home and her daughter manages all her medication--she has not missed any doses recently. HOSPITAL COURSE: The patient was admitted with presumed diagnosis hypertensive encephalopathy as blood pressure was 240/110 in ED. She was put in the ICU on labetalol drip. Her blood pressure came down on the evening of the date of admission. A renal Doppler ultrasound was concerning for absent flow to the R kidney and CT abd/pel found complex renal cysts but flow was present in both kidneys. Urology was consulted and recommended follow up in the outpatient setting. The patient was discharged on increased dose of Coreg with stable BPs. DISCHARGE MEDICATIONS: Please see below. ALLERGIES: Please see below. PHYSICAL EXAMINATION ON DISCHARGE: VITAL SIGNS: please see below. GENERAL: Pt lying comfortably in hospital bed, appears stated age, in NAD. HEENT: NC, AT, no scleral icterus, no pharyngeal erythema. NECK: no JVD or lymphadenopathy appreciated. CV: regular rate, paced rhythm without murmurs, rubs, or gallops. RESPIRATORY: CTAB without wheezes, rales, or rhonchi. ABDOMEN: soft, non-tender, non-distended, bowel sounds present in all 4 quadrants. EXTREMITIES: 4/5 strength L leg, 5/5 strength in UE and R leg, sensation intact in all 4 extremities, pedal pulses +2 and equal B/L. NEURO: CN II-XII grossly intact, EOMI, PERRLA PSYCH: Awake, oriented only to person, normal mood and affect LABORATORY DATA: Please see below. IMAGING: HEAD CT: FINDINGS: Brain: There is no acute intracranial hemorrhage, cerebral edema, or midline shift. Chronic microvascular ischemic changes are seen in the periventricular white matter. Age-related cerebral and cerebellar volume loss is present. Cerebral ventricles: Mild ex vacuo dilation of the lateral and third ventricles is noted. Bones/joints: No acute fracture. Paranasal sinuses: There is no acute sinusitis. Mastoid air cells: The mastoid air cells are clear. Orbital cavity: The included orbital structures are unremarkable. Vasculature: Atherosclerotic calcifications are seen involving the cavernous carotid arteries. Soft tissues: Unremarkable. IMPRESSION: 1. No acute intracranial abnormality. 2. Atrophy and chronic deep white matter ischemic changes. CXR: FINDINGS: Tubes, catheters and devices: A dual lead pacemaker device is noted, with the battery pack projecting over the left chest. Lungs: Unremarkable. No consolidation. Pleural space: Unremarkable. No pleural effusion. No pneumothorax. Heart/Mediastinum: The cardiac silhouette is mildly enlarged, likely due to underlying cardiomegaly. Vasculature: Atherosclerotic calcifications are noted within the aortic arch. Bones/joints: Bone mineralization is decreased, suggestive of osteopenia. IMPRESSION: 1. No acute abnormality. 2. Chronic findings as discussed above. RENAL DOPPLER US: FINDINGS: There is absent flow in the right kidney. CT angiogram or MR angiogram of the abdomen may be considered for further evaluation. Peak systolic velocities within the LEFT renal artery measure up to 58.3 cm/s. The renal artery/aortic systolic velocity ratio is 0.5. The RIGHT kidney measures 9.2 cm in length. There are a couple of solid hypoechoic masses measuring 1.4 and 1.7 cm in the midpole of the right kidney, concerning for malignancy. MRI of the abdomen may be considered for further evaluation. 2.2 cm simple cortical cyst is seen in the upper pole of the right kidney. The LEFT kidney measuring 8.9 cm in length. Simple cortical cysts are noted measuring 2.4 cm in the upper pole, 10 and 7 mm in the midpole of the left kidney. No calculus or hydronephrosis is seen on either side. The peak systolic velocity in the aorta is 99.4 cm/s. IMPRESSION: 1. There is absent flow in the right kidney. CT angiogram or MR angiogram of the abdomen may be considered for further evaluation. 2. No evidence of hemodynamically significant stenosis of the left renal artery. 3. Abnormal values : RA/A ratio greater than 3.5.PSV GREATER than 200 cm/s.= 60% stenosis.RI > 0.8 and AT > 0.07 4. There are a couple of solid hypoechoic masses measuring 1.4 and 1.7 cm in the midpole of the right kidney, concerning for malignancy. MRI of the abdomen may be considered for further evaluation. 2.2 cm simple cortical cyst is seen in the upper pole of the right kidney. 5. No calculus or hydronephrosis is seen on either side. CT ABD/PELVIS WITHOUT AND WITH IV CONTRAST: FINDINGS: Lungs: Interstitial prominence and bilateral airspace disease. Cardiomegaly and pacemaker. Liver: No focal hepatic mass. Gallbladder and bile ducts: Borderline gallbladder wall thickening. No cholelithiasis or biliary ductal dilatation. Pancreas: Borderline pancreatic ductal dilatation without focal mass. Spleen: No splenomegaly. Adrenals: Unremarkable adrenals. Kidneys and ureters: Multiple bilateral renal nodular hypodense lesions which do not fulfill CT criteria for simple cysts, including a 1.4 cm lesion in the inferolateral right kidney and 8 mm lesion in the posterior-inferior left kidney. No hydronephrosis. Stomach and bowel: No significant small bowel dilatation. Prominent stool and scattered diverticula. Appendix: Nonvisualization of the appendix. Intraperitoneal space: No significant free fluid. Lymph nodes: Subcentimeter lymph nodes. Vasculature: Extensive vascular calcification. Atherosclerotic plaque. Normal caliber of the abdominal aorta. Bladder: Unremarkable bladder. Reproductive: Inhomogeneous attenuation and calcifications in the uterus. Bones/joints: Beam hardening artifact in association with left hip arthroplasty. Surgical hardware in the proximal right femur. Osteopenia, degenerative change, vacuum discs, and disc bulging. Soft tissues: Unremarkable. IMPRESSION: 1. Multiple bilateral renal nodular hypodense lesions which do not fulfill CT criteria for simple cysts, including a 1.4 cm lesion in the inferolateral right kidney and 8 mm lesion in the posterior-inferior left kidney. 2.Additional findings as described above. PROGNOSIS: fair ACTIVITY: [As tolerated]. DIET: regular DISCHARGE PLAN: Home DISPOSITION: 01 Home, Self-Care. DISCHARGE INSTRUCTIONS: 1. Follow up with urology within 7 days 2. Follow up with PCP within 7 days ITEMS TO FOLLOWUP ON ON OUTPATIENT: 1. none DISCHARGE CONDITION: [Stable]. TIME SPENT ON DISCHARGE: Greater than 45 minutes. Vital Signs/I&Os Vital Signs Date Time Temp Pulse Resp B/P (MAP) Pulse Ox O2 Delivery O2 Flow Rate FiO2 07/18/20 11:35 97.8 69 18 104/50 (68) 94 07/18/20 08:00 Room Air Microbiology Microbiology 07/16/20 Blood Culture - Preliminary, Resulted No Growth after 72 hours. All specime... 07/16/20 Blood Culture - Preliminary, Resulted No Growth after 72 hours. All specime... Discharge Medications Scheduled Apixaban (Eliquis) 2.5 Mg Tab, 2.5 MG PO BID, (Reported) Calcium Carbonate (Calcium) 500 Mg Tab.chew, 500 MG PO DAILY, (Reported) Carvedilol (Carvedilol) 12.5 Mg Tablet, 12.5 MG PO BID Cholecalciferol (Vitamin D3) (Vitamin D-400) 10 Mcg Tablet, 10 MCG PO DAILY, (Reported) Flecainide Acetate (Flecainide Acetate) 100 Mg Tablet, 50 MG PO BID, (Reported) Levothyroxine Sodium (Levoxyl) 50 Mcg Tab, 50 MCG PO QAM, (Reported) Melatonin (Melatonin) 5 Mg Tablet, 5 MG PO QHS, (Reported) Mirtazapine (Remeron) 30 Mg Tablet, 30 MG PO QHS, (Reported) Turmeric Root Extract (Turmeric) 500 Mg Capsule, 500 MG PO DAILY, (Reported) Daughter states started turmeric 07/16/20 for joint pain Allergies Coded Allergies: Penicillins (Verified Allergy, Intermediate, hives, 07/16/20) Sulfa (Sulfonamide Antibiotics) (Verified Allergy, Intermediate, throat and tongue swelling, 07/16/20) ciprofloxacin (Verified Adverse Reaction, Unknown, lethergy, 07/16/20) GME ATTESTATION GME ATTESTATION My faculty preceptor for this patient encounter was physically present during the encounter and was fully available. All aspects of the patient interview, examination, medical decision making process, and medical care plan development were reviewed and approved by the faculty preceptor. The faculty preceptor is aware and concurs with the plan as stated in the body of this note and will attest to such by his/her cosignature. MELANY MORSE MD Jul 19, 2020 18:34
[2020-07-25 02:08] LABS: ALDOSTERONE 6.1 ng/dL (0.0-30.0); RENIN LEVEL 0.378 ng/mL/hr (0.167-5.380)
== END 2020-07-18 13:30 | disposition home health service (06) | DRG 78 ==
LOC: M ED 10:35 → M ED INP 15:55 → ENRESERV 17:27 → M ICU 18:26 → M PCU 07-17 12:15
PROVIDERS: ADMIT Internal Medicine; ATTEND Internal Medicine
DX: I67.4 Hypertensive encephalopathy (principal); I16.1 Hypertensive emergency; I10 Essential (primary) hypertension; E03.9 Hypothyroidism, unspecified; N32.81 Overactive bladder; G47.00 Insomnia, unspecified; I48.91 Unspecified atrial fibrillation; N28.89 Other specified disorders of kidney and ureter; N28.1 Cyst of kidney, acquired; Z96.642 Presence of left artificial hip joint; Z79.01 Long term (current) use of anticoagulants; Z95.0 Presence of cardiac pacemaker; Z79.899 Other long term (current) drug therapy; Z85.51 Personal history of malignant neoplasm of bladder; Z88.0 Allergy status to penicillin; Z88.1 Allergy status to other antibiotic agents; Z88.2 Allergy status to sulfonamides

== ENCOUNTER → 2020-12-25 | Outpatient (REF) | payer MEDICARE ==
[~2020-12-25] MED LIST changes: +CALC500C16 PO; +D-40TAB2 PO; +FLEC10TA PO; +FLEC50HA PO; +MELA1TAB9 PO; +MIRT-60 PO; +MIRT1TAB16 PO; +RA T500C2 PO; +vitamin D
[2020-12-26 12:28] LABS: CALCIUM LEVEL 9.7 MG/DL (8.8-10.2); CREATININE FOR GFR 1.4 MG/DL (0.55-1.30); GLOMERULAR FILTRATION RATE 37.8 (>32); POTASSIUM SERUM 4.6 MEQ/L (3.5-5.1)
== END ==
LOC: M LABDRAWC 11:08
PROVIDERS: ATTEND Physician Assistant
DX: I10 Essential (primary) hypertension (principal)

== ENCOUNTER → 2021-08-07 | Outpatient (REF) | payer MEDICARE ==
[~2021-08-07] MED LIST changes: +FLEC100T27 PO; -FLEC10TA PO
[2021-08-07 15:54] LABS: BASO # 0.1 10^3/uL (0.0-0.2); BASO % 0.7 % (0.0-1.0); EOS # 0.3 10^3/uL (0.0-0.5); EOS % 3.7 % (0.0-3.0); HEMATOCRIT 38.9 % (36.0-47.0); LYMPH # 1.2 10^3/uL (1.5-5.0); LYMPH % 17.5 % (24.0-44.0); MEAN CORPUSCULAR HEMOGLOBIN 32.7 pg (27.0-33.0); MEAN CORPUSCULAR HGB CONC 33.4 g/dl (32.0-36.5); MEAN CORPUSCULAR VOLUME 97.7 fl (80.0-96.0); MONO # 0.7 10^3/uL (0.0-0.8); NEUTROPHILS # 4.8 10^3/uL (1.5-8.5); NEUTROPHILS % 67.7 % (36.0-66.0); PLATELET COUNT, AUTOMATED 293 10^3/uL (150-450); RED BLOOD COUNT 3.98 10^6/uL (4.00-5.40); WHITE BLOOD COUNT 7.1 10^3/uL (4.0-10.0)
[2021-08-07 16:35] LABS: ALBUMIN 3.1 GM/DL (3.2-5.2); BILIRUBIN,TOTAL 0.4 MG/DL (0.2-1.0); CALCIUM LEVEL 9.8 MG/DL (8.8-10.2); CREATININE FOR GFR 1.04 MG/DL (0.55-1.30); FREE T4 1.46 NG/DL (0.76-1.46); GLOMERULAR FILTRATION RATE 53.1 (>32); POTASSIUM SERUM 4.5 MEQ/L (3.5-5.1); THYROID STIMULATING HORMONE 2.45 uIU/ML (0.358-3.740); TOTAL PROTEIN 6.7 GM/DL (6.4-8.2)
== END ==
LOC: M SFHCCLAY 11:30
PROVIDERS: ATTEND Nurse Practitioner Family
DX: I48.0 Paroxysmal atrial fibrillation (principal); I10 Essential (primary) hypertension; E03.9 Hypothyroidism, unspecified; F03.91 Unspecified dementia, unspecified severity, with behavioral disturbance
CPT/HCPCS: 80053; 84439; 84443; 85025; G0463